=== PATIENT | male | born 1995 | race Caucasian/White ===

== ENCOUNTER 2016-12-30 17:32 | Emergency (ER) | payer MEDICAID ==
[2016-12-30 17:38] VITALS: O2SAT 98
--- NOTE | 2016-12-30 18:14 | EDPHY ---
H & P Stated Complaint: pain r throat/neck and ?r sided lung pain since september/has had cxr/ work up Time Seen by Provider: 12/30/16 17:44 HPI/ROS: CHIEF COMPLAINT: neck and chest complaint HISTORY OF PRESENT ILLNESS: 21-year-old male presents emergency department complaining of a left-sided neck fullness x5 days, states it feels like there is something pushing on his esophagus. Patient states this radiates to his right chest that he states feels "full " pressure with deep breath, difficult to describe. Patient reports it started out intermittent and is now constant. He was seen for similar complaint at an outside urgent care 3 months ago and had a normal chest x-ray, he saw a primary care doctor and had a physical where he reports he had normal blood work. 1 week after this appointment in October it spontaneously resolved until 5 days ago when it returned. Patient denies fevers , chills. He denies nausea, vomiting or diarrhea, no cough or nasal congestion. Patient does report feeling more tired than usual, intermittent mild dizziness. No calf pain, no recent travel, no history of vte or family history of vte. No rash. REVIEW OF SYSTEMS: A comprehensive 10 point review of systems is otherwise negative aside from elements mentioned in the history of present illness. Source: Patient Exam Limitations: No limitations - Personal History Current Tetanus/Diphtheria Vaccine: Yes - Medical/Surgical History Hx Asthma: No Hx Chronic Respiratory Disease: No Hx Diabetes: No Hx Cardiac Disease: No Hx Renal Disease: No Hx Cirrhosis: No Hx Alcoholism: No Hx HIV/AIDS: No Hx Splenectomy or Spleen Trauma: No Other PMH: denies - Social History Smoking Status: Never smoked Alcohol Use: None Drug Use: None - Physical Exam Exam: Physical Exam Gen: Alert and Oriented, NAD HEENT: PERRL, moist mucous membranes NECK: no meningismus CV: regular rate and regular rhythm PULM: CTAB, no wheezes ABDOMEN: soft, non tender to palpation, BS present BACK: No CVA tenderness NEURO: Neurologically grossly intact EXTREMITIES: normal appearing SKIN: no rash or break in skin on exposed skin PSYCH: answers questions appropriately. Constitutional: Initial Vital Signs Temperature (C) 36.8 C 12/30/16 17:35 Heart Rate 56 L 12/30/16 17:35 Respiratory Rate 19 12/30/16 17:35 Blood Pressure 146/92 H 12/30/16 17:35 O2 Sat (%) 98 12/30/16 17:35 O2 Delivery Mode Room Air Allergies/Adverse Reactions: No Known Allergies Allergy (Unverified 12/30/16 17:35) Home Medications: Medication Instructions Recorded NK [No Known Home Meds] 12/30/16 Medical Decision Making - Diagnostics Imaging Results: Imaging Impressions Chest/Thorax CTA 12/30/16 18:11 Impression: No pulmonary embolism to the segmental level. Dr. Cuadra discussed these findings by telephone with Lucina Landrum NP at 21:07. Neck CT 12/30/16 18:11 Impression: No acute abnormalities. Dr. Cuadra discussed these findings by telephone with Lucina Landrum NP at 21:07. Imaging: Discussed imaging studies w/ callisthenics instructor Radiologist ED Course/Re-evaluation: IV established, CBC and istat obtained, EKG obtained. Do to the length of the symptoms and that this is his 3rd time being seen for these vague neck and chest complaints I have ordered a CT neck and chest to rule out lymphoma. WBC mildly elevated at 11. Normal chemistry, normal EKG. I do not think this is cardiac in nature. CT chest and neck are normal. No evidence of lymphoma. Thyroid normal. Pt will be discharged. I have recommended starting taking a zyrtec daily as this could be allergy related. He has been given a pcp for follow up. Pt is given return precautions for worsening symptoms, new symptoms or concerns. Differential Diagnosis: Diagnosis considered but not limited to lymphoma, acid reflux, allergies, ACS - Data Points Laboratory Results: Laboratory Results 12/30/16 18:20 12/30/16 12/30/16 18:56 18:20 WBC 11.16 10^3/uL H 10^3/uL (3.80-9.50) RBC 5.62 10^6/uL 10^6/uL (4.40-6.38) Hgb 17.4 g/dL g/dL (13.7-17.5) POC Hgb 15.6 gm/dL gm/dL (13.7-17.5) Hct 49.1 % % (40.0-51.0) POC Hct 46 % % (40-51) MCV 87.4 fL fL (81.5-99.8) MCH 31.0 pg pg (27.9-34.1) MCHC 35.4 g/dL g/dL (32.4-36.7) RDW 12.2 % % (11.5-15.2) Plt Count 344 10^3/uL 10^3/uL (150-400) MPV 8.9 fL fL (8.7-11.7) Neut % (Auto) 71.3 % % (39.3-74.2) Lymph % (Auto) 22.2 % % (15.0-45.0) [place] % (Auto) 5.0 % % (4.5-13.0) Eos % (Auto) 0.5 % L % (0.6-7.6) Baso % (Auto) 0.6 % % (0.3-1.7) Nucleat RBC Rel Count 0.0 % % (0.0-0.2) Absolute Neuts (auto) 7.95 10^3/uL H 10^3/uL (1.70-6.50) Absolute Lymphs (auto) 2.48 10^3/uL 10^3/uL (1.00-3.00) Absolute Monos (auto) 0.56 10^3/uL 10^3/uL (0.30-0.80) Absolute Eos (auto) 0.06 10^3/uL 10^3/uL (0.03-0.40) Absolute Basos (auto) 0.07 10^3/uL 10^3/uL (0.02-0.10) Absolute Nucleated RBC 0.00 10^3/uL 10^3/uL (0-0.01) Immature Gran % 0.4 % % (0.0-1.1) Immature Gran # 0.04 10^3/uL 10^3/uL (0.00-0.10) POC Sodium 142 mEq/L mEq/L (134-144) POC Potassium 3.5 mEq/L mEq/L (3.3-5.0) POC Chloride 104 mEq/L mEq/L (97-110) POC BUN 11 mg/dL mg/dL (7-23) POC Creatinine 1.1 mg/dL mg/dL (0.7-1.3) POC Glucose 90 mg/dL mg/dL (70-100) Point of Care Test Results: 12/30/16 18:56 POC Sodium 142 POC Potassium 3.5 POC Chloride 104 POC BUN 11 POC Creatinine 1.1 POC Glucose 90 Departure - Departure Disposition: Home, Routine, Self-Care Clinical Impression: Throat pain Chest pain Qualifiers: Chest pain type: unspecified Qualified Code(s): R07.9 - Chest pain, unspecified Condition: Good Instructions: Chest Pain (ED) Additional Instructions: Start taking 10mg of zyrtec once a day for 7 days to see if your symptoms resolve. Follow up with the primary care doctor for symptoms that are not improving. Return to the ER for worsening symptoms, new symptoms or concerns. Referrals: Nicole Melissa MD [place] [place] - As per Instructions (primary care doctor inventory controller)
--- NOTE | 2016-12-30 18:17 | CPEKG ---
Heart Rate: 53 RR Interval: 1132 P-R Interval: 144 QRSD Interval: 88 QT Interval: 416 QTC Interval: 391 P [place]: 45 QRS [place]: 72 T Wave [place]: 50 EKG Severity - NORMAL ECG - EKG Impression: SINUS RHYTHM Electronically Signed By: Neel Vogt 01-Jan-2017 08:04:20
[2016-12-30 18:37] LABS: % IMMATURE GRANULYOCYTES 0.4 % (0.0-1.1); ABSOLUTE IMMATURE GRANULOCYTES 0.04 10^3/uL (0.00-0.10); ADD DIFF? NO; ADD MORPH? NO; ADD SCAN? NO; ATYPICAL LYMPHOCYTE FLAG 10 (0-99); FRAGMENT RBC FLAG 0 (0-99); HEMATOCRIT 49.1 % (40.0-51.0); HEMOGLOBIN 17.4 g/dL (13.7-17.5); LEFT SHIFT FLG 0 (0-99); LIPEMIA HEMOLYSIS FLAG 90 (0-99); MEAN CELL HEMOGLOBIN CONCENTR. 35.4 g/dL (32.4-36.7); MEAN CELL VOLUME 87.4 fL (81.5-99.8); MEAN PLATELET VOLUME 8.9 fL (8.7-11.7); PLATELET CLUMPS FLAG 0 (0-99); PLATELET COUNT 344 10^3/uL (150-400); RED BLOOD CELL COUNT 5.62 10^6/uL (4.40-6.38); RED CELL DISTRIBUTION WIDTH 12.2 % (11.5-15.2)
[2016-12-30] MEDS ORDERED: IOPAMIDOL (ISOVUE 370) 100 ML BTL IV ONE (19:15)
[2016-12-30 21:06] VITALS: PULSE 54; RESP 16
[2016-12-30 21:18] VITALS: BP 133/75; TEMP 98.4
== END 2016-12-30 21:20 | disposition home or self-care (01) ==
DX: R07.9 Chest pain, unspecified (principal); R07.0 Pain in throat
CPT/HCPCS: 82947-QW; Q9967